=== PATIENT | male | born 1985 | race Caucasian/White ===

== ENCOUNTER 2021-04-29 16:39 | Emergency (ER) | payer OTHER, SELFPAY ==
[2021-04-29 16:47] VITALS: BP 139/83; PULSE 67; RESP 18; TEMP 36.3; O2SAT 99
--- NOTE | 2021-04-29 17:12 | ED.EAR ---
HPI - Ear Problem General Chief complaint: Ear Stated complaint: bilateral ear pain Time Seen by Provider: 04/29/21 16:56 Source: patient and RN notes reviewed Mode of arrival: ambulatory Limitations: no limitations History of Present Illness HPI Narrative: Patient presents today complaining of left ear pain x3 days. Reports the left ear has started to muffle. Denies drainage. Denies any additional symptoms to include cough, congestion, rhinorrhea, sore throat. Currently rates his pain 3/10 and took a dose of ibuprofen prior to arrival. Denies any additional interventions. MD Complaint: ear pain Related Data Home Medications Medication Instructions Recorded Confirmed citalopram 20 mg PO DAILY 04/29/21 04/29/21 Allergies Allergy/AdvReac Type Severity Reaction Status Date / Time Penicillins Allergy Unknown HIVES Verified 04/29/21 16:57 tetracycline Allergy Unknown HIVES Verified 04/29/21 16:57 Review of Systems Review of Systems: CONSTITUTIONAL: Denies body aches, fever, chills, or sweats. EYES: Denies visual changes, redness, or discharge. ENT: Denies rhinorrhea, congestion, sore throat. + Left ear pain and muffling CARDIOVASCULAR: Denies chest pain, palpitations, or edema. RESPIRATORY: Denies cough or dyspnea. GASTROINTESTINAL: Denies abdominal pain, nausea, vomiting, or diarrhea. GENITOURINARY: Denies dysuria or hematuria. SKIN: Denies rash, itching, or wounds. MUSCULOSKELETAL: Denies back pain, joint pain, or myalgia. NEUROLOGIC: Denies headache, numbness, tingling, or weakness. PSYCH: Denies depression or anxiety. PMFSH Comments At time of signature, I have reviewed and agree with nursing past medical, surgical, social and family history unless otherwise noted. Please see nursing chart for further information. There is no relevant family history pertinent to the presenting complaint Exam Narrative: GENERAL: Well-appearing, well-nourished, and in no acute distress. HEAD: Normocephalic, atraumatic. EYES: EOMI. No redness or drainage. Conjunctivae normal. ENT: Mucous membranes pink and moist. Nares clear. No rhinorrhea. Right TM normal. Mild left middle ear effusion without evidence of bacterial infection. Throat normal. Uvula midline. NECK: Normal AROM. Supple. No lymphadenopathy. CHEST: No respiratory distress. EXTREMITIES: Normal range of motion. No edema. SKIN: Warm, dry, no rash. Capillary refill normal. Normal skin turgor. NEURO: No focal deficits. Alert and oriented x3. Gait steady. PSYCH: Normal affect. No signs of depression or anxiety. Course Vital Signs Vital signs: Vital Signs Temperature 97.3 F L 04/29/21 16:47 Pulse Rate 67 04/29/21 16:47 Respiratory Rate 18 04/29/21 16:47 Blood Pressure 139/83 04/29/21 16:47 Pulse Oximetry 99 04/29/21 16:47 Temperature 97.3 F L 04/29/21 16:47 Pulse Rate 67 04/29/21 16:47 Respiratory Rate 18 04/29/21 16:47 Blood Pressure 139/83 04/29/21 16:47 Pulse Oximetry 99 04/29/21 16:47 Reviewed. Pt has been instructed to follow up with his PCP regarding his elevated blood pressure today. Medical Decision Making Differential Diagnosis Differential Diagnosis: Otitis media, otitis externa, ruptured TM, serous otitis, eustachian tube dysfunction Vital Signs Vital Signs: Vital Signs Temperature 97.3 F L 04/29/21 16:47 Pulse Rate 67 04/29/21 16:47 Respiratory Rate 18 04/29/21 16:47 Blood Pressure 139/83 04/29/21 16:47 Pulse Oximetry 99 04/29/21 16:47 Temperature 97.3 F L 04/29/21 16:47 Pulse Rate 67 04/29/21 16:47 Respiratory Rate 18 04/29/21 16:47 Blood Pressure 139/83 04/29/21 16:47 Pulse Oximetry 99 04/29/21 16:47 Critical Care Time Critical Care Time Critical Care Time: No Discharge Plan Discharge Clinical Impression: Acute middle ear effusion Qualifiers: Laterality: left Qualified Code(s): H65.192 - Other acute nonsuppurative otitis media, left ear Patient Dis
== END 2021-04-29 17:18 | disposition home or self-care (01) ==
PROVIDERS: Emergency Provider Nurse Practitioner; PCP Nurse Practitioner Family
DX: H65.192 Other acute nonsuppurative otitis media, left ear (principal); F41.9 Anxiety disorder, unspecified
CPT/HCPCS: 99211; G0463

== ENCOUNTER 2024-12-28 11:42 | Emergency (ER) | payer BC, SELFPAY ==
--- OUTSIDE RECORDS SUMMARY | 2024-12-28 11:44 | XMS_ITS | Encounter Summary ---
Author Organization [facility] Address [facility] [place] [address] Care Team Providers Care Marine Animal Trainer Name Role Phone Santino Nolen MD Unavailable [phone] Rachel Casanova NP Primary Care Provider Unav ailAstrid Phillips [facility] Primary Care Provider + Seda Geiger [facility] Primary Care Provider + Helen Pack MD Primary Care Provider [phone] Encounter Details Date Type Department Care Team (Late st Contact Info) Description 06/02/2020 [email or web address] Message Enc [facility] Medical Group Family & Internal Medicine [address] [address] Rachel Casanova, CLINICAL DATA ASSOCIATE RE: Question Social History Tobacco Use Types Packs/Day Years Used Date Smoking Tobacco: Never Smokeless Tobacco: Never Alcohol Use Standard Drinks/Week Comments Yes 0 (1 standard drink = 0.6 oz pur e alcohol) Drinks occasionally AUDIT-C Answer Date Recorded Q1: How often do you have a drink containing alc ohol? 2-4 times a month 03/11/2020 Q2: How many drinks containi ng alcohol do you have on a typical day when you are drinking? 1 or 2 03/11/2020 Q3: How often do you have si x or more drinks on one occasion? Never 03/11/2020 PHQ-2 Answer Date Recorded PHQ-2 Score 0 03/11/2020 Education Answer Date Recorded What is the highest level of school you have completed or the highest degree you have received? Master's degree (e.g., MA, MS, Darnell, MEd, INDUSTRIAL HIRE SALES ASSISTANT, YOUNG) 04/27/2019 Sex and Gender Information Value Date Recorded Sex Assigned at Male 04/27/2019 7:38 AM SAFETY ANALYST Legal Sex Male 12:08 PM CDT Gender Identity Male 04/27/2019 7:38 AM SAFETY ANALYST Sexual Orientation Straight 04/27/2019 7: 38 AM SAFETY ANALYST COVID-19 Exposure Response Date Recorded In the last month, have you been in contact with someone who was confirmed or suspected to have Coronavirus / COVID-19? No / Unsure 06/05/2020 10:58 AM SAFETY ANALYST documented as of this encounter Progress Notes * Kristyn Schmitt RN - 06/03/2020 8:22 AM CST Please advise. TY ANALYST documented in this encounter Plan of Treatment Not on file documented as of this encounter Visit Diagnoses Not on filedocumented in this encounter Care Teams Marine Animal Trainer Relationship Specialty Start Date End Date Rachel Casanova NP [address] [address] PCP - General NURSE PRACTITIONER 04/04/20 07/15/21 Astrid Stewart [facility] [address] [address] PCP - General Nurse Practitioner Family 08/29/21 02/21/23 Seda Geiger, [facility] [address] [place] [address] PCP - General Nurse Practitioner Family 02/22/23 12/04/24 [place] [address] [place] [address] PCP - General INTERNAL MEDICINE 12/05/24 Santino Nolen MD Three [facility]. [address] [address] [place] Network Technician CARDIOVASCULAR DISEASE 04/13/19 documented as of this encounter
--- OUTSIDE RECORDS SUMMARY | 2024-12-28 11:44 | XMS_ITS | Clinical Summary ---
Author Organization [facility] Address [address] [address] Care Team Providers Care Brim Edge Trimmer Name Role Phone Unavailable Primary Care Provider Unavailabl e Source Comments [facility],non-owned Affiliates and Associated Physician Practices is amultiple site organization consisting of ambulatory clinics and hospital sitesin [place], [place], [place]. This disclosure is being madepursuant to the Care Everywhere program and may not contain all information available regarding this patient. Last updated 18.[facility] [employer] Social History Tobacco Use Types Packs/Day Years Used Date Smoking Tobacco: Never Assessed Sex and Gender Information Value Date Recorded Sex Assigned at Not on file Legal Sex Male 3:40 PM PVC LOADER Gender Identity Not on file Sexual Orientation Not on file Plan of Treatment Health Maintenance Due Date Last Done Comments HIV SCREENING 09/03/2002 HEPATITIS C SCREENING 08/30/2005 DTAP/TDAP/TD VACCINES (1 - Tdap) 09/03/2006 HEPATITIS B VACCINE (1 of 3 - 19+ 3-dose series) 09/03/2006 HPV VACCINE (1 - 3-dose SCDM series) 09/03/2014 COVID-19 VACCINE (1 - 2023-2 5 season) 2024 DEPRESSION SCREENING 06/07/2024 INFLUENZA VACCINE (#1) 2025 ZOSTER VACCINE (1 of 2) 09/03/2037 HIB VACCINE Aged Out No longer eligi ble based on patient's age to complete this topic MENINGOCOCCAL (Group B) VACC INE SHARED DECISION-MAKING Aged Out No longer eligibl e based on patient's age to complete this topic MENINGOCOCCAL GROUPS A/C/Y/W VACCINE Aged Out No longer eligible b ased on patient's age to complete this topic PNEUMOCOCCAL VACCINE Aged Out No long er eligible based on patient's age to complete this topic [place] [address] [place] [address]
--- OUTSIDE RECORDS SUMMARY | 2024-12-28 11:44 | XMS_ITS | Clinical Summary ---
Author Organization [facility] [place] [address] Address [address] [place] [address] Care Team Providers Care Pottery Kiln Builder Name Role Phone Olga Rios ASSISTANT SCIENTIST Primary Care Provider + Allergies Active Allergy Reactions Criticality Noted Date Comments Penicillin G Other (See comments) Low 05/20/2018 Doesn't know reaction Social History Tobacco Use Types Packs/Day Years Used Date Smoking Tobacco: Never Assessed Personal Safety Answer Date Recorded Getting School Help Needed Not on file 08/19 Sex and Gender Information Value Date Recorded Sex Assigned at Not on file Legal Sex Male 7:30 AM WESTERN FELT HAT BLOCKER Gender Identity Not on file Sexual Orientation Not on file Last Filed Vital Signs Vital Sign Reading Time Taken Comments Blood Pressure - - Pulse - - Temperature - - Respiratory Rate - - Oxygen Saturation - - Inhaled Oxygen Concentration - - Weight 90.7 kg (200 lb) 05/20/2018 12:59 PM WESTERN FELT HAT BLOCKER Height 180.3 cm (5' 11) 05/20/2018 12:59 PM WESTERN FELT HAT BLOCKER Body Mass Index 27.89 05/20/2018 12:59 PM WESTERN FELT HAT BLOCKER Plan of Treatment Not on file Insurance [facility] CHOICE PLUS [facility] CHOICE PLUS [facility] ACCESS CHOICE Care Teams Pottery Kiln Builder Relationship Specialty Start Date End Date Olga iRos NP PCP - General Nurse Practitioner 05/02/18
--- OUTSIDE RECORDS SUMMARY | 2024-12-28 11:44 | XMS_ITS | Encounter Summary ---
Author Organization [facility] Address [address] [facility] [address] [place] [address] Care Team Providers Care Health Data Analyst Name Role Phone Unavailable Primary Care Provider Unavailabl e Encounter Details Date Type Department Care Team (Late st Contact Info) Description 05/21/2021 Lab Requisition [facility] DermPath Lab [address] [place] [id number] Satinder Villatoro MD [address] [place] [address] Social History Tobacco Use Types Packs/Day Years Used Date Smoking Tobacco: Never Assessed Sex and Gender Information Value Date Recorded Sex Assigned at Not on file Legal Sex Male 3:40 PM FOREST FIRE PREVENTION SPECIALIST Gender Identity Not on file Sexual Orientation Not on file documented as of this encounter Plan of Treatment Not on file documented as of this encounter Procedures Procedure Name Priority Date/Time Associated Diagnosis Comments DERMATOPATHOLOGY Routine 05/20/2021 12:0 0 AM FOREST FIRE PREVENTION SPECIALIST documented in this encounter Results * DERMATOPATHOLOGY (05/20/2021 12:00 AM FOREST FIRE PREVENTION SPECIALIST) Case Report Dermatopathology Report Case: [id number] Authorizing Provider: Satinder Villatoro MD Collected: 05/20/2021 12:00 AM Ordering Location: [facility] DermPath Lab Received: 05/21/2021 03:58 PM Pathologist: Lata Kate MD Specimens: A) - Skin, mid upper back B) - Skin, mid lower back 2:35 PM FOREST FIRE PREVENTION SPECIALIST DERMATOPATHOLOGY LABORATORY Final Diagnosis Specimen A. 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 SKIN, mid lower back: COMPOUND NEVUS WITH CONGENITAL FEATURES (D22.5) 12/20/202 1 2:35 PM [facility] DERMATOPATHOLOGY LABORATORY at [address] FOREST FIRE PREVENTION SPECIALIST Clinical History A: Nevus vs MM. Path # [id number]. B: Nevus vs MM. Path # [id number]. 1 2:35 PM [facility] DERMATOPATHOLOGY LABORATORY Gross Description Specimen A: Received is one formalin filled container labeled with the patient's name and designated mid upper back. The specimen consists of a shave biopsy measuring [id number]. Jar 0. Specimen B: Received is one formalin filled container labeled with the patient's name and designated mid lower back. The specimen consists of a shave biopsy measuring [id number]. Jar 0. 1 2:35 PM [facility] DERMATOPATHOLOGY LABORATORY Microscopic Description Specimen A. SKIN, mid upper back: This is a compound nevus. There is melanin pigment in the stratum corneum. There is architectural disorder characterized by a lentiginous proliferation of melanocytes between irregular nests of cells along the dermal-epidermal junction, highlighted by MART-1/Melan-A immunohistochemical staining. There is underlying fibroplasia of the papillary dermis. The intradermal component is bland appearance and matures with depth. Original and deeper sections were reviewed. (Compound Juan's Nevus or Compound Dysplastic Nevus) Specimen B. SKIN, mid lower back: There are nests of melanocytes at the dermal-epidermal junction and within the dermis. Some melanocytes are splayed between collagen bundles and are localized around adnexal structures. MART-1/Melan-A immunohistochemical stain highlights the melanocytes as above. 1 2:35 PM [facility] DERMATOPATHOLOGY LABORATORY Disclaimer An external and internal positive and negative controls are appropriate for the histochemical, immunohistochemical and immunofluorescence stain(s) in this case (if any), except where stated explicitly. The performance characteristics of the stain(s) cited in this report were developed and its performance characteristic determined by the Dermatopathology Laboratory at [facility], directed by Dr. Mikaela Feliz. These tests need not be, and therefore are not, approved by the [place] Food and Drug Administration. The tests are used for clinical purposes. Billing Codes Specimen Charges Stain Charges 76744 91946 1 1 [id number] 1 1 1 2:35 PM FOREST FIRE PREVENTION SPECIALIST DERMATOPATHOLOGY LABORATORY Embedded Images 2:35 PM FOREST FIRE PREVENTION SPECIALIST DERMATOPATHOLOGY LABORATORY Pathology/Cytology TISSUE SPECIMEN FROM SKIN / Unknown 05/20/2021 05/21/2021 3:58 PM FOREST FIRE PREVENTION SPECIALIST Miscellaneous samples (specimen) TISSUE SPECIMEN FROM SKIN / Unknown 05/20/2021 05/21/2021 3:58 PM FOREST FIRE PREVENTION SPECIALIST us Satinder Villatoro MD LAB - PATHOLOGY/CYTOLOGY ORDER ROSSY Final Result DERMATOPATHOLOGY LABORATORY [facility] - Department of Dermatology [facility] [address] [place] [address], [address] [phone] documented in this encounter Visit Diagnoses Not on filedocumented in this encounter
--- OUTSIDE RECORDS SUMMARY | 2024-12-28 11:44 | XMS_ITS | Encounter Summary ---
Author Organization [facility] Address [facility] [place] [address] Care Team Providers Care Land Conservation Specialist Name Role Phone Santino Nolen MD Unavailable [phone] Rachel Casanova NP Primary Care Provider Unav ailable Astrid Stewart [facility] Primary Care Provider + Seda Geiger [facility] Primary Care Provider + Helen Pack MD Primary Care Provider [phone] Encounter Details Date Type Department Care Team (Late st Contact Info) Description 06/06/2020 PageLevert Message Enc [facility] Medical Group Family & Internal Medicine [address] [address] Rachel Casanova, SUPPLY CONTROLLER RE: Medication Questions Social History Tobacco Use Types Packs/Day Years [...] Master's degree (e.g., MA, MS, Darnell, MEd, PROTECTIVE SIGNAL SUPERINTENDENT, YOUNG) 04/27/2019 Sex and Gender Information Value Date Recorded Sex Assigned at Male 04/27/2019 7:38 AM ELECTRIC WHEELCHAIR REPAIRER Legal Sex Male 12:08 PM CDT Gender Identity Male 04/27/2019 7:38 AM ELECTRIC WHEELCHAIR REPAIRER Sexual Orientation Straight 04/27/2019 7: 38 AM ELECTRIC WHEELCHAIR REPAIRER COVID-19 Exposure Response Date Recorded In the last month, have you been in contact with someone who was confirmed or suspected to have Coronavirus / COVID-19? No / Unsure 06/05/2020 10:58 AM ELECTRIC WHEELCHAIR REPAIRER documented as of this encounter Plan of Treatment Not on file documented as of this encounter Visit Diagnoses Not on filedocumented in this encounter Care Teams Land Conservation Specialist Relationship Specialty Start Date End Date Rachel Casanova NP [address] [address] PCP - General NURSE PRACTITIONER 04/04/20 07/15/21 Astrid Stewart, [facility] [address] [address] PCP - General Nurse Practitioner Family 08/29/21 02/21/23 Seda Geiger, [facility] [address] [place] [address] PCP - General Nurse Practitioner Family 02/22/23 12/04/24 [place] [address] [place] [address] PCP - General INTERNAL MEDICINE 12/05/24 Santino Nolen MD [address] [address] [place] Personal Financial Counselor CARDIOVASCULAR DISEASE 04/13/19 documented as of this encounter
--- OUTSIDE RECORDS SUMMARY | 2024-12-28 11:44 | XMS_ITS | Referral Summary ---
Author Organization [facility] [place] [address] Address [address] [place] [address] Care Team Providers Care Broomcorn Seeder Name Role Phone Olga Rios SKOOG MACHINE OPERATOR Primary Care Provider + Allergies Active Allergy [...] on file Legal Sex Male 7:30 AM CHARGE ACCOUNT AUTHORIZER Gender Identity Not on file Sexual Orientation Not on file Last Filed Vital Signs Vital Sign Reading Time Taken Comments Blood Pressure - - Pulse - - Temperature - - Respiratory Rate - - Oxygen Saturation - - Inhaled Oxygen Concentration - - Weight 90.7 kg (200 lb) 05/20/2018 12:59 PM CHARGE ACCOUNT AUTHORIZER Height 180.3 cm (5' 11) 05/20/2018 12:59 PM CHARGE ACCOUNT AUTHORIZER Body Mass Index 27.89 05/20/2018 12:59 PM CHARGE ACCOUNT AUTHORIZER Plan of Treatment Not on file Insurance [facility] CHOICE PLUS [facility] H[facility]/PPO Address: [address] [address] [place] [address] [facility] CHOICE PLUS [facility] HMO/PPO Address: [address] [address] [place] [address] [facility] ACCESS CHOICE Care Teams Broomcorn Seeder Relationship Specialty Start Date End Date Olga Rios NP PCP - General Nurse Practitioner 05/02/18
--- OUTSIDE RECORDS SUMMARY | 2024-12-28 11:44 | XMS_ITS | Encounter Summary ---
Author Organization [facility] Address [facility] [place] [address] Care Team Providers Care Kettle Tender Name Role Phone Santino Nolen MD Unavailable [phone] Rachel Casanova NP Primary Care Provider Unav ailable Astrid Stewart [facility] Primary Care Provider + Seda Geiger [facility] Primary Care Provider + Helen Pack MD Primary Care Provider [phone] Encounter Details Date Type Department Care Team (Late st Contact Info) Description 09/07/2020 MyChart Message Enc [facility] Medical Group Family & Internal Medicine [address] [address] Rachel Casanova, IT PROGRAMMER RE: Medication Questions Social History Tobacco Use [...] Master's degree (e.g., MA, MS, Darnell, MEd, ADVERTISING ASSISTANT, YOUNG) 04/27/2019 Sex and Gender Information Value Date Recorded Sex Assigned at Male 04/27/2019 7:38 AM PALM GATHERER Legal Sex Male 12:08 PM CDT Gender Identity Male 04/27/2019 7:38 AM PALM GATHERER Sexual Orientation Straight 04/27/2019 7: 38 AM PALM GATHERER COVID-19 Exposure Response Date Recorded In the last month, have you been in contact with someone who was confirmed or suspected to have Coronavirus / COVID-19? No / Unsure 09/10/2020 3:01 PM CDT documented as of this encounter Progress Notes * Kristyn Schmitt RN - 09/09/2020 8:45 AM CDT Please advise. documented in this encounter Plan of Treatment Not on file documented as of this encounter Visit Diagnoses Not on filedocumented in this encounter Care Teams Kettle Tender Relationship Specialty Start Date End Date Rachel Casanova NP [address] [address] PCP - General NURSE PRACTITIONER 04/04/20 07/15/21 Astrid Stewart [facility] [address] [address] PCP - General Nurse Practitioner Family 08/29/21 02/21/23 Seda Geiger, [facility] [address] [place], [place] [id number] PCP - General Nurse Practitioner Family 02/22/23 12/04/24 [place] [address] [place] [address] PCP - General INTERNAL MEDICINE 12/05/24 Santino Nolen MD Three [facility]. [address] [address] [place] Cat Wagon Operator CARDIOVASCULAR DISEASE 04/13/19 documented as of this encounter
--- OUTSIDE RECORDS SUMMARY | 2024-12-28 11:44 | XMS_ITS | Clinical Summary ---
Author Organization [facility] Address [facility] [place] [address] Care Team Providers Care Test Desk Supervisor Name Role Phone Santino Nolen MD Unavailable [phone] Helen Pack MD Primary Care Provider Allergies Active Allergy Reactions Criticality Noted Date Comments Penicillins Unknown Low 02/15/2019 Childhood allergy Medications Multiple Vitamins-Minera ls (MULTIVITAMIN ADULT OR) Take 1 tablet by mouth daily. Active ALPRAZolam (XANAX) 1 MG tabletIndicatio ns:Anxiety with flying Take 1 -2 tablets as needed for flying 90 tablet 12/25/2021 Active omeprazole EC 20 MG Tab EC tablet 09/05/2022 Active citalopram (CELEXA) 20 MG tabletIndicatio ns:Generalized anxiety disorder Take 1.5 tablets (30 mg total) by mouth daily. 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 BMI 28.0-28.9,adult 10/06/2018 Resolved Problems Problem Noted Date Diagnosed Date Resolved Date Anxiety 04/04/2019 09/06/2021 Chest pain 09/06/2021 Immunizations Immunization Administration Dates Next Due Flucelvax 6 Months+ (Prefilled Syringe) 03/07/20 20 Fluzone 6 Months+ Quad (0.5 mL Prefilled Syringe ) 06/03/2023,04/04/2019 Influenza Adult (Generic) 03/07/2020,03/28/2015 tsumobi (ABEBE & ABEBE) COVID-19 AD26 VACCINE 0.5 ML IM SUSP 2020 Tdap (Generic) 11/06/2022,06/07/2016 Family History Medical History Relation Comments None Brother 1 None Brother 2 Diabetes Father type 2 No Known Problems Maternal Grandfather No Known Problems Maternal Grandmother Hearing loss Mother Cancer Paternal Grandfather pancreatic cancer Dementia Paternal Grandfather Heart Disease Paternal Grandfather great grand father Alzheimer's disease Paternal Grandmother Anxiety Paternal Grandmother Heart Disease Paternal great-grandfather Relation Status Comments Brother 1 Alive Brother 2 Alive Father Alive Maternal Grandfather Maternal Grandmother Mother Alive Paternal Grandfather Paternal Grandmother Alive Paternal great-grandfather Social History Tobacco Use Types Packs/Day Years Used Date Smoking Tobacco: Never Smokeless Tobacco: Never Tobacco Cessation:Counseling Given: No Alcohol Use Standard Drinks/Week Comments Yes 1.7 (1 standard drink = 0.6 oz p ure alcohol) Drinks occasionally AUDIT-C Answer Date Recorded [...] occasion? Never 03/11/2020 PHQ-2 Answer Date Recorded Patient Health Questionnaire-2 Score 0 09/08/2022 Education Answer Date Recorded What is the highest level of school you have completed or the highest degree you have received? Master's degree (e.g., MA, MS, Darnell, MEd, CORE SUCKER, YOUNG) 04/27/2019 Sex and Gender Information Value Date Recorded Sex Assigned at Male 04/27/2019 7:38 AM CIVIL DESIGNER Legal Sex Male 12:08 PM CDT Gender Identity Male 04/27/2019 7:38 AM CIVIL DESIGNER Sexual Orientation Straight 04/27/2019 7: 38 AM CIVIL DESIGNER Last Filed Vital Signs Vital Sign Reading Time Taken Comments Blood Pressure 132/89 06/03/2023 10:51 AM CIVIL DESIGNER Pulse 65 06/03/2023 10:51 AM CIVIL DESIGNER Temperature 36.6 C (97.9 F) 06/03/2023 10:51 AM CIVIL DESIGNER Respiratory Rate 16 06/03/2023 10:5 1 AM CIVIL DESIGNER Oxygen Saturation 98% 06/03/2023 10: 51 AM CIVIL DESIGNER Inhaled Oxygen Concentration - - Weight 103.2 kg (227 lb 9.6 oz) 023 10:51 AM CIVIL DESIGNER Height 180.3 cm (5' 11) 06/03/2023 10: 51 AM CIVIL DESIGNER Body Mass Index 31.74 06/03/2023 10:51 AM CIVIL DESIGNER Plan of Treatment Health Maintenance Due Date Last Done Comments Hepatitis C 09/03/2005 Hepatitis B Vaccines (1 of 3 - 19+ 3-dose series) 09/03/2006 HPV Vaccines (1 - 3-dose SCD M series) 09/03/2014 COVID-19 Vaccine (2 - 2023-2 5 season) 2024 2020 Annual Physical 06/03/2024 06/03/2023, 12/25/2021 PHQ-2 (Physician [place]) 06/07/2024 DTaP, Tdap and Td Vaccines ( 3 - Td or Tdap) 11/06/2032 11/06/2022, 06/07/2016 Meningococcal B Vaccine Aged Out No l onger eligible based on patient's age to complete this topic Meningococcal Vaccine Aged Out No farn yonas eligible based on patient's age to complete this topic Pneumococcal Vaccine: Pediatrics (0 to 5 Years) and At-Risk Patients (6 to 49 Years) Aged Out No longer eligible b ased on patient's age to complete this topic RSV Immunizations Under 20 Months Aged Out No longer eligible b ased on patient's age to complete this topic Medical Devices Implanted Type Area Family Preservation Officer Device Identifier Shelf Expiration Date Model / Serial / Lot Clip Clip Implant Abdomen Insurance [facility] Care Teams Test Desk Supervisor Relationship Specialty [place] [address] [address] PCP - General INTERNAL MEDICINE 12/05/24 Santino Nolen MD Three [facility]. [address] [address] Sun Dealer Development Manager CARDIOVASCULAR DISEASE 04/13/19
--- OUTSIDE RECORDS SUMMARY | 2024-12-28 11:44 | XMS_ITS | Encounter Summary ---
Author Organization [facility] Address [facility] [place] [address] Care Team Providers Care Grief Counsellor Name Role Phone Santino Nolen MD Unavailable [phone] Rachel Casanova NP Primary Care Provider Unav ailAstrid Phillips [facility] Primary Care Provider + Seda Geiger [facility] Primary Care Provider + Helen Pack MD Primary Care Provider [phone] Encounter Details Date Type Department Care Team (Late st Contact Info) Description 05/23/2020 Navis Holdingst Message Enc [facility] Medical Group Family & Internal Medicine [address] [address] Rachel Casanova, DIETARY TECH RE: Follow Up/Update Social History Tobacco Use Types Packs/Day Years [...] Master's degree (e.g., MA, MS, Darnell, MEd, GROUP MARKETING VP, YOUNG) 04/27/2019 Sex and Gender Information Value Date Recorded Sex Assigned at Male 04/27/2019 7:38 AM ROOMING HOUSE OPERATOR Legal Sex Male 12:08 PM CDT Gender Identity Male 04/27/2019 7:38 AM ROOMING HOUSE OPERATOR Sexual Orientation Straight 04/27/2019 7: 38 AM ROOMING HOUSE OPERATOR COVID-19 Exposure Response Date Recorded In the last month, have you been in contact with someone who was confirmed or suspected to have Coronavirus / COVID-19? No / Unsure 05/13/2020 8:58 AM ROOMING HOUSE OPERATOR documented as of this encounter Progress Notes * Kristyn Schmitt RN - 05/23/2020 8:47 AM CST Please advise. ING HOUSE OPERATOR documented in this encounter Plan of Treatment Not on file documented as of this encounter Visit Diagnoses Not on filedocumented in this encounter Care Teams Grief Counsellor Relationship Specialty Start Date End Date Rachel Casanova NP [address] [address] PCP - General NURSE PRACTITIONER 04/04/20 07/15/21 Astrid Stewart, [facility] [address] [address] PCP - General Nurse Practitioner Family 08/29/21 02/21/23 Seda Geiger, [facility] [address], [address] [place] [address] PCP - General Nurse Practitioner Family 02/22/23 12/04/24 [place] [address] [place] [address] PCP - General INTERNAL MEDICINE 12/05/24 Santino Nolen MD Three [facility]. [address] [address] Sun Supervisor Grinding CARDIOVASCULAR DISEASE 04/13/19 documented as of this encounter
--- OUTSIDE RECORDS SUMMARY | 2024-12-28 11:44 | XMS_ITS | Encounter Summary ---
Author Organization [facility] Address [facility] [place] [address] Care Team Providers Care Organic Chemistry Teacher Name Role Phone Santino Nolen MD Unavailable [phone] Rachel Casanova NP Primary Care Provider Unav ailAstrid Phillips [facility] Primary Care Provider + Seda Geiger [facility] Primary Care Provider + Helen Pack MD Primary Care Provider [phone] Encounter Details Date Type Department Care Team (Late st Contact Info) Description 05/23/2020 Afraxist Message Enc [facility] Medical Group Family & Internal Medicine [address] [address] Rachel Casanova, DIRECTOR OF STRATEGIC PARTNERSHIPS RE: Follow Up/Update Social History Tobacco Use [...] Master's degree (e.g., MA, MS, Darnell, MEd, SUPERVISOR COIN MACHINE, YOUNG) 04/27/2019 Sex and Gender Information Value Date Recorded Sex Assigned at Male 04/27/2019 7:38 AM CREDIT AND COLLECTION MANAGER Legal Sex Male 12:08 PM CDT Gender Identity Male 04/27/2019 7:38 AM CREDIT AND COLLECTION MANAGER Sexual Orientation Straight 04/27/2019 7: 38 AM CREDIT AND COLLECTION MANAGER COVID-19 Exposure Response Date Recorded In the last month, have you been in contact with someone who was confirmed or suspected to have Coronavirus / COVID-19? No / Unsure 05/13/2020 8:58 AM CREDIT AND COLLECTION MANAGER documented as of this encounter Progress Notes * Kristyn Schmitt RN - 05/23/2020 9:32 AM CST See images below. IT AND COLLECTION MANAGER documented in this encounter Plan of Treatment Not on file documented as of this encounter Visit Diagnoses Not on filedocumented in this encounter Care Teams Organic Chemistry Teacher Relationship Specialty Start Date End Date Rachel Casanova NP [address] [address] PCP - General NURSE PRACTITIONER 04/04/20 07/15/21 Astrid Stewart, [facility] [address] [address] PCP - General Nurse Practitioner Family 08/29/21 02/21/23 Seda Geiger, [facility] [address], [address] [place] [address] PCP - General Nurse Practitioner Family 02/22/23 12/04/24 [place] [address] [place] [address] PCP - General INTERNAL MEDICINE 12/05/24 Santino Nolen MD Three [facility]. [address] [address] Sun Union Representative CARDIOVASCULAR DISEASE 04/13/19 documented as of this encounter
--- OUTSIDE RECORDS SUMMARY | 2024-12-28 11:45 | XMS_ITS | Encounter Summary ---
Author Organization [facility] Address [facility] [place] [address] Care Team Providers Care Lime Boiler Name Role Phone Santino Nolen MD Unavailable [phone] Rachel Casanova NP Primary Care Provider Unav ailAstrid Phillips [facility] Primary Care Provider + Seda Geiger [facility] Primary Care Provider + Helen Pack MD Primary Care Provider [phone] Encounter Details Date Type Department Care Team (Late st Contact Info) Description 04/28/2020 mobifriendst Message Enc [facility] Medical Group Family & Internal Medicine [address] [address] Rachel Casanova, INNER DIAMETER GRINDER TOOL RE: Follow Up/Update Social History Tobacco Use [...] Master's degree (e.g., MA, MS, Darnell, MEd, CERTIFICATION OFFICER, YOUNG) 04/27/2019 Sex and Gender Information Value Date Recorded Sex Assigned at Male 04/27/2019 7:38 AM COMPUTER BOOKKEEPER Legal Sex Male 12:08 PM CDT Gender Identity Male 04/27/2019 7:38 AM COMPUTER BOOKKEEPER Sexual Orientation Straight 04/27/2019 7: 38 AM COMPUTER BOOKKEEPER COVID-19 Exposure Response Date Recorded In the last month, have you been in contact with someone who was confirmed or suspected to have Coronavirus / COVID-19? No / Unsure 04/04/2020 7:15 AM CDT documented as of this encounter Progress Notes * Corrie Ivy RN - 04/30/2020 8:35 AM CST Will need to submit a PA UTER BOOKKEEPER * Gayla Jason RN - 04/29/2020 10:16 AM CST FYI. UTER BOOKKEEPER documented in this encounter Plan of Treatment Not on file documented as of this encounter Visit Diagnoses Not on filedocumented in this encounter Care Teams Lime Boiler Relationship Specialty Start Date End Date Rachel Casanova NP [address] [address] PCP - General NURSE PRACTITIONER 04/04/20 07/15/21 Astrid Stewart, [facility] [address] [place] [address] PCP - General Nurse Practitioner Family 08/29/21 02/21/23 Seda Geiger, [facility]- [address], [address] [place] [address] PCP - General Nurse Practitioner Family 02/22/23 12/04/24 [place] [address] [place] [address] PCP - General INTERNAL MEDICINE 12/05/24 Santino Nolen MD Three [facility]. [address] [address] [place] In File Operator CARDIOVASCULAR DISEASE 04/13/19 documented as of this encounter
--- OUTSIDE RECORDS SUMMARY | 2024-12-28 11:45 | XMS_ITS | Encounter Summary ---
Author Organization [facility] Address [facility] [place] [address] Care Team Providers Care Pipe Machine Operator Name Role Phone Santino Nolen MD Unavailable [phone] Rachel Casanova BOTTLER Primary Care Provider Unav ailable Astrid Stewart [facility] Primary Care Provider + Seda Geiger [facility] Primary Care Provider + Helen Pack MD Primary Care Provider [phone] Encounter Details Date Type Department Care Team (Late st Contact Info) Description 09/16/2020 MyNextRun Message [facility] [address] [place] [address] [place] [address] [place] [address] RE: Medication Questions Social History Tobacco Use [...] Master's degree (e.g., MA, MS, Darnell, MEd, MILITARY LAWYER, YOUNG) 04/27/2019 Sex and Gender Information Value Date Recorded Sex Assigned at Male 04/27/2019 7:38 AM PIANO MOVER Legal Sex Male 12:08 PM CDT Gender Identity Male 04/27/2019 7:38 AM PIANO MOVER Sexual Orientation Straight 04/27/2019 7: 38 AM PIANO MOVER COVID-19 Exposure Response Date Recorded In the last month, have you been in contact with someone who was confirmed or suspected to have Coronavirus / COVID-19? No / Unsure 09/10/2020 3:01 PM CDT documented as of this encounter Plan of Treatment Not on file documented as of this encounter Visit Diagnoses Not on filedocumented in this encounter Care Teams Pipe Machine Operator Relationship Specialty Start Date End Date Rachel Casanova NP [address] [address] PCP - General NURSE PRACTITIONER 04/04/20 07/15/21 Astrid Stewart [facility] [address] [address] PCP - General Nurse Practitioner Family 08/29/21 02/21/23 Seda Geiger, [facility] [address], [address] [place] [address] PCP - General Nurse Practitioner Family 02/22/23 12/04/24 [place] [address] [address] [place] [address] PCP - General INTERNAL MEDICINE 12/05/24 Santino Nolen MD [address] [place] [address] Sun Retirement Specialist CARDIOVASCULAR DISEASE 04/13/19 documented as of this encounter
--- OUTSIDE RECORDS SUMMARY | 2024-12-28 11:45 | XMS_ITS | Encounter Summary ---
Author Organization [facility] Address [facility] [place] [address] Care Team Providers Care Rehabilitation Attendant Name Role Phone Santino Nolen MD Unavailable [phone] Rachel Casanova NP Primary Care Provider Unav ailAstrid Phillips [facility] Primary Care Provider + Seda Geiger [facility] Primary Care Provider + Helen Pack MD Primary Care Provider [phone] Encounter Details Date Type Department Care Team (Late st Contact Info) Description 04/12/2020 SonicLivingt Message Enc [facility] Medical Group Family & Internal Medicine [address] [address] Rachel Casanova, SPRAY DRIER RE: Follow Up/Update Social History Tobacco Use [...] Master's degree (e.g., MA, MS, Darnell, MEd, AUDITOR MEDICAL CLAIMS, YOUNG) 04/27/2019 Sex and Gender Information Value Date Recorded Sex Assigned at Male 04/27/2019 7:38 AM AREA SECRETARY Legal Sex Male 12:08 PM CDT Gender Identity Male 04/27/2019 7:38 AM AREA SECRETARY Sexual Orientation Straight 04/27/2019 7: 38 AM AREA SECRETARY COVID-19 Exposure Response Date Recorded In the last month, have you been in contact with someone who was confirmed or suspected to have Coronavirus / COVID-19? No / Unsure 04/04/2020 7:15 AM CDT documented as of this encounter Plan of Treatment Not on file documented as of this encounter Visit Diagnoses Not on filedocumented in this encounter Care Teams Rehabilitation Attendant Relationship Specialty Start Date End Date Rachel Casanova NP [address] [address] PCP - General NURSE PRACTITIONER 04/04/20 07/15/21 Astrid Stewart, [facility] [address] [address] PCP - General Nurse Practitioner Family 08/29/21 02/21/23 Sead Geiger, [facility] [address], [address] [place] [address] PCP - General Nurse Practitioner Family 02/22/23 12/04/24 [place] [address] [address] [place] [address] PCP - General INTERNAL MEDICINE 12/05/24 Santino Nolen MD [address] [address] [place] Yarn Comber CARDIOVASCULAR DISEASE 04/13/19 documented as of this encounter
--- OUTSIDE RECORDS SUMMARY | 2024-12-28 11:45 | XMS_ITS | Encounter Summary ---
Author Organization [facility] Address Count includes the [facility] [place] [address] Care Team Providers Care Fermenter Champagne Name Role Phone Santion Nolen MD Unavailable [phone] Rachel Casanova CAFETERIA CLERK Primary Care Provider Unav ailable Astrid Stewart [facility] Primary Care Provider + Seda Geiger [facility] Primary Care Provider + Helen Pack MD Primary Care Provider [phone] Encounter Details Date Type Department Care Team (Late st Contact Info) Description 10/12/2020 MyCLoad DynamiXt Message Enc [facility] Medical Group Family & Internal Medicine [address] [address] Astrid Stewart [facility] [address] [place] [address] RE: Follow Up/Update Social History Tobacco Use [...] 03/11/2020 PHQ-2 Answer Date Recorded PHQ-2 Score - If the patient scores above 3, please move on to questions 3-9 0 10/10/2020 Education Answer Date Recorded What is the highest level of school you have completed or the highest degree you have received? Master's degree (e.g., MA, MS, Darnell, MEd, SUPERVISOR VARNISH, YOUNG) 04/27/2019 Sex and Gender Information Value Date Recorded Sex Assigned at Male 04/27/2019 7:38 AM RN ORTHOPAEDIC Legal Sex Male 12:08 PM CDT Gender Identity Male 04/27/2019 7:38 AM RN ORTHOPAEDIC Sexual Orientation Straight 04/27/2019 7: 38 AM RN ORTHOPAEDIC COVID-19 Exposure Response Date Recorded In the last month, have you been in contact with someone who was confirmed or suspected to have Coronavirus / COVID-19? No / Unsure 10/10/2020 4:14 PM CDT documented as of this encounter Plan of Treatment Not on file documented as of this encounter Visit Diagnoses Not on filedocumented in this encounter Care Teams Fermenter Champagne Relationship Specialty Start Date End Date Rachel Casanova NP [address] [address] PCP - General NURSE PRACTITIONER 04/04/20 07/15/21 Astrid Stewart [facility] [address] [address] PCP - General Nurse Practitioner Family 08/29/21 02/21/23 Seda Geiger, [facility] [address], [address] [place] [address] PCP - General Nurse Practitioner Family 02/22/23 12/04/24 [place] [address] [address] [place] [address] PCP - General INTERNAL MEDICINE 12/05/24 Santino Nolen MD Three [facility]. [address] [address] Sun Hot Tamale Man CARDIOVASCULAR DISEASE 04/13/19 documented as of this encounter
--- OUTSIDE RECORDS SUMMARY | 2024-12-28 11:45 | XMS_ITS | Encounter Summary ---
Author Organization [facility] Address [facility] [place] [address] Care Team Providers Care Linen Tech Name Role Phone Santino Nolen MD Unavailable [phone] Negar Story Primary Care Provider [phone] Rachel Casanova NP Primary Care Provider Unav ailable Astrid Stewart [facility] Primary Care Provider + Seda Geiger [facility] Primary Care Provider + Helen Pack MD Primary Care Provider [phone] Encounter Details Date Type Department Care Team (Late st Contact Info) Description 03/31/2020 MyChart Message Enc [facility] Medical Group Family & Internal Medicine [address] [address] Rachel Casanova NP Follow Up/Update Social History Tobacco Use Types [...] Master's degree (e.g., MA, MS, Darnell, MEd, SCIENTIFIC PUBLICATIONS EDITOR, YOUNG) 04/27/2019 Sex and Gender Information Value Date Recorded Sex Assigned at Male 04/27/2019 7:38 AM SPECIAL EDUCATION PROFESSIONAL Legal Sex Male 12:08 PM CDT Gender Identity Male 04/27/2019 7:38 AM SPECIAL EDUCATION PROFESSIONAL Sexual Orientation Straight 04/27/2019 7: 38 AM SPECIAL EDUCATION PROFESSIONAL COVID-19 Exposure Response Date Recorded In the last month, have you been in contact with someone who was confirmed or suspected to have Coronavirus / COVID-19? No / Unsure 03/11/2020 1:41 PM CDT documented as of this encounter Plan of Treatment Not on file documented as of this encounter Visit Diagnoses Not on filedocumented in this encounter Care Teams Linen Tech Relationship Specialty Start Date End Date Negar Story APNP [id number] [address] PCP - General Nurse Practitioner Family 04/27/19 04/03/20 [place] [address] [address] PCP - General NURSE PRACTITIONER 04/04/20 07/15/21 Astrid Stewart [facility] [address] [address] PCP - General Nurse Practitioner Family 08/29/21 02/21/23 Seda Geiger, [facility] [address] [facility], [address] [address] PCP - General Nurse Practitioner Family 02/22/23 12/04/24 [place] [address] [facility] [address] [place] [address] PCP - General INTERNAL MEDICINE 12/05/24 Santino Nolen MD Three [facility]. [address] [address] [place] Fruit Harvester Machine Operator CARDIOVASCULAR DISEASE 04/13/19 documented as of this encounter
--- OUTSIDE RECORDS SUMMARY | 2024-12-28 11:45 | XMS_ITS | Encounter Summary ---
Author Organization [facility] Address [facility] [place] [address] Care Team Providers Care Student Services Dean Name Role Phone Santino Nolen MD Unavailable [phone] Astrid Stewart [facility] Primary Care Provider + Seda Geiger [facility] Primary Care Provider + Helen aPck MD Primary Care Provider [phone] Encounter Details Date Type Department Care Team (Late st Contact Info) Description 08/16/2021 MyCMomoxt Message Enc [facility] Medical Group Family & Internal Medicine [address] [address] [address]id Stewart [address] [address] Flight Medicine Social History Tobacco Use Types Packs/Day Years [...] Master's degree (e.g., MA, MS, Darnell, MEd, COATER SLATE, YOUNG) 04/27/2019 Sex and Gender Information Value Date Recorded Sex Assigned at Male 04/27/2019 7:38 AM WELDING MACHINE OPERATOR ARC Legal Sex Male 12:08 PM CDT Gender Identity Male 04/27/2019 7:38 AM WELDING MACHINE OPERATOR ARC Sexual Orientation Straight 04/27/2019 7: 38 AM WELDING MACHINE OPERATOR ARC documented as of this encounter Plan of Treatment Not on file documented as of this encounter Visit Diagnoses Not on filedocumented in this encounter Care Teams Student Services Dean Relationship Specialty Start Date End Date Astrid Stewart, [facility] [address] [place] [address] PCP - General Nurse Practitioner Family 08/29/21 02/21/23 Seda Geiger, [facility] [address], [address] [place] [address] PCP - General Nurse Practitioner Family 02/22/23 12/04/24 [place] [address] [address] [place] [address] PCP - General INTERNAL MEDICINE 12/05/24 Santino Nolen MD [facility]. [place] [address] [place], [place] [address] Sun Automatic Presser CARDIOVASCULAR DISEASE 04/13/19 documented as of this encounter
--- OUTSIDE RECORDS SUMMARY | 2024-12-28 11:45 | XMS_ITS | Encounter Summary ---
Author Organization [facility] Address [facility] [place] [address] Care Team Providers Care Certified Optician Name Role Phone Santino Nolen MD Unavailable [phone] Negar Story APNP Primary Care Provider [phone] Rachel Casanova [employer] [facility] Primary Care Provider Unav ailable Astrid Stewart [facility] Primary Care Provider + Seda Geiger [facility] Primary Care Provider + Helen Pack MD Primary Care Provider [phone] Encounter Details Date Type Department Care Team (Late st Contact Info) Description 12/20/2019 Prep for Procedure [facility] [place] [place], [place] [id number] Joel Case MD 3 [facility] [address] [address] [place] [id number] Social History Tobacco Use Types Packs/Day Years Used Date Smoking Tobacco: Never Smokeless Tobacco: Never Alcohol Use Standard Drinks/Week Comments Yes 0 (1 standard drink = 0.6 oz pur e alcohol) Drinks occasionally AUDIT-C Answer Date Recorded Frequency of Alcohol Consumption Never 10/04/2018 Average Number of Drinks Not on file 019 Frequency of Binge Drinking Not on file 09/07 Education Answer Date Recorded What is the highest level of school you have completed or the highest degree you have received? 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 No / Unsure 12/21/2019 10:46 AM CDT documented as of this encounter Plan of Treatment Not on file documented as of this encounter Results * RESPIRATORY PCR PANEL 2 ([facility] PATIENTS ONLY) (12/20/2019 9:00 AM CDT) ADENOVIRUS PCR (RESP) NOT DETECTED NOT DETECTED 12/20/2019 1:18 PM CDT [facility] CORONAVIRUS 229E PCR (RESP) NOT DETECTED NOT DETECTED 12/20/2019 1:18 PM CDT [facility] CORONAVIRUS HKU1 PCR (RESP) NOT DETECTED NOT DETECTED 12/20/2019 1:18 PM CDT [facility] CORONAVIRUS NL63 PCR (RESP) NOT DETECTED NOT DETECTED 12/20/2019 1:18 PM CDT [facility] CORONAVIRUS OC43 PCR (RESP) NOT DETECTED NOT DETECTED 12/20/2019 1:18 PM CDT [facility] METAPNEUMOVIRUS PCR (RESP) NOT DETECTED NOT DETECTED 12/20/2019 1:18 PM CDT [facility] RHINOVIRUS/ENTEROV IRUS PCR (RESP) NOT DETECTED NOT DETECTED 12/20/2019 1:18 PM CDT [facility] INFLUENZA A PCR (RESP) NOT DETECTED NOT DETECTED 12/20/2019 1:18 PM CDT [facility] INFLUENZA B PCR (RESP) NOT DETECTED NOT DETECTED 12/20/2019 1:18 PM CDT [facility] PARAINFLUENZA 1 PCR (RESP) NOT DETECTED NOT DETECTED 12/20/2019 1:18 PM CDT [facility] PARAINFLUENZA 2 PCR (RESP) NOT DETECTED NOT DETECTED 12/20/2019 1:18 PM CDT [facility] PARAINFLUENZA 3 PCR (RESP) NOT DETECTED NOT DETECTED 12/20/2019 1:18 PM CDT [facility] PARAINFLUENZA 4 PCR (RESP) NOT DETECTED NOT DETECTED 12/20/2019 1:18 PM CDT [facility] RSV PCR (RESP) NOT DETECTED NOT DETECTED 12/20/2019 1:18 PM CDT [facility] B PARAPERTUSIS PCR (RESP) NOT DETECTED NOT DETECTED 12/20/2019 1:18 PM CDT [facility] BORDETELLA PERTUSSIS PCR (RESP) NOT DETECTED NOT DETECTED 12/20/2019 1:18 PM CDT [facility] CHLAMYDOPHILA PNEUMONIAE PCR (RESP) NOT DETECTED NOT DETECTED 12/20/2019 1:18 PM CDT [facility] MYCOPLASMA PNEUMONIAE PCR (RESP) NOT DETECTED NOT DETECTED 12/20/2019 1:18 PM CDT [facility] CORONAVIRUS SARS COV 2 PCR (RESP) NOT DETECTED NOT DETECTED 12/20/2019 1:18 PM CDT [facility] Comment: THE SARS-CoV-2 TEST HAS BEEN AUTHORIZED BY THE FDA UNDER AN EUA FOR USE BY AUTHORIZED LABORATORIES. NASOPHARYNGEAL STRUCTURE / Unknown 12/20/2019 9:00 AM CDT Joel Case MD MICROBIOLOGY - GENERAL ORDERABLE S Final Result [facility] [address] [place] [address], [place] [phone] documented in this encounter Visit Diagnoses Diagnosis AP (abdominal pain)- Primary Abdominal pain, unspecified site Constipation Unspecified constipation documented in this encounter Additional Health Concerns Infection Onset Date Last Indicated Resolved Time COVID-19 Rule Out 12/20/2019 12/20/2019 12/20/2019 1:18 PM CDT documented as of this encounter Care Teams Certified Optician Relationship Specialty Start Date End Date Negar Story APNP [id number] [id number] PCP - General Nurse Practitioner Family 04/27/19 04/03/20 [place] [address] [address] PCP - General NURSE PRACTITIONER 04/04/20 07/15/21 Astrid Stewart [facility] [address] [address] PCP - General Nurse Practitioner Family 08/29/21 02/21/23 Seda Geiger, [facility] [address] [place] [address] PCP - General Nurse Practitioner Family 02/22/23 12/04/24 [place] [address] [address] PCP - General INTERNAL MEDICINE 12/05/24 Santino Nolen MD [address] [address] [employer] Engineering Technician CARDIOVASCULAR DISEASE 04/13/19 documented as of this encounter
--- OUTSIDE RECORDS SUMMARY | 2024-12-28 11:45 | XMS_ITS | Encounter Summary ---
Author Organization [facility] Address [facility] [place] [address] Care Team Providers Care Workers' Compensation Claims Examiner Name Role Phone Santino Nolen MD Unavailable [phone] Seda Geiger [facility] Primary Care Provider + Helen Pack MD Primary Care Provider [phone] Encounter Details Date Type Department Care Team (Late st Contact Info) Description 05/26/2023 ePub Directt Message Enc [facility] [id number] [place] [phone] Seda Geiger, [facility] [id number] [place] [address] [place] [id number] Question for physical Social History Tobacco Use Types Packs/Day Years [...] Master's degree (e.g., MA, MS, Darnell, MEd, HOSPITAL MEDICAL BILLER, YOUNG) 04/27/2019 Sex and Gender Information Value Date Recorded Sex Assigned at Male 04/27/2019 7:38 AM PROTOTYPE FABRICATOR Legal Sex Male 12:08 PM CDT Gender Identity Male 04/27/2019 7:38 AM PROTOTYPE FABRICATOR Sexual Orientation Straight 04/27/2019 7: 38 AM PROTOTYPE FABRICATOR documented as of this encounter Plan of Treatment Not on file documented as of this encounter Visit Diagnoses Not on filedocumented in this encounter Additional Health Concerns Assessment Noted Time PHQ-9 Depression Total Score: 5 12/26/19 22 9:22 AM CDT documented as of this encounter Care Teams Workers' Compensation Claims Examiner Relationship Specialty Start Date End Date Seda Geiger, [facility]- [address], [address] [place] [address] PCP - General Nurse Practitioner Family 02/22/23 12/04/24 [place] [address] [place] [address] PCP - General INTERNAL MEDICINE 12/05/24 Santino Nolen MD [facility]. [address] [address] [place] Grinder Set Up Operator External CARDIOVASCULAR DISEASE 04/13/19 documented as of this encounter
--- NOTE | 2024-12-28 11:46 | ED.URI ---
HPI - URI/Sore Throat General Chief Complaint: Upper Respiratory Infection Stated Complaint: cough/congestion/ear pain Time Seen by Provider: 12/28/24 11:44 Source: patient Mode of arrival: ambulatory Limitations: no limitations History of Present Illness HPI Narrative: Artur is a 39-year-old male patient presenting to the clinic today with complaints of cough, sinus congestion, sinus headache, and ear pain for over 1 week. He reports he is coughing up and blowing out yellowish brown discharge. Denies any chest pain or shortness of breath. No known fevers, chills, body aches. History of penicillin allergy-hives. States he is not allergic to tetracycline as it is listed Related Data Home Medications ?Medication ?Instructions ?Recorded ?Confirmed ?Last Taken ?Type citalopram 20 mg tablet 20 mg PO DAILY 04/29/21 04/29/21 Unknown History Allergies Allergy/AdvReac Type Severity Reaction Status Date / Time Penicillins Allergy Unknown HIVES Verified 12/28/24 11:56 tetracycline Allergy Unknown HIVES Verified 12/28/24 11:56 Review of Systems Review of Systems: Pertinent positives per HPI. Patient denies any fever, chills, rash, headache, visual changes, dizziness, cough, shortness of breath, chest pain, palpitations, nausea, vomiting, diarrhea, constipation, abdominal pain, or any urinary issues. PMFSH Comments At the time of my signature, I reviewed and agree with the nursing past medical, surgical, social, and family history. There is no relevant family history pertinent to the patient complaint. Exam Narrative: General: Well-developed, well nourished, in no apparent distress Head: Normocephalic, atraumatic Eyes: Pupils equally round and reactive to light bilaterally, EOM intact, sclera and conjunctive clear, no discharge, lids normal Ears: TMs intact and clear, ear canals clear, no drainage, grossly hearing normal. Nose: Nares patent, yellow nasal discharge, moderate to severe inflammation, frontal sinus tenderness. Mouth: Oral pharynx without lesions or masses, good dentition, MMM. Postnasal drip Neck: Supple, trachea midline, no enlargement of anterior or posterior cervical nodes, no thyroid masses or goiter palpable. Cardio: Regular rate and rhythm, s1 and s2 normal, no murmur appreciated. Resp: Clear to auscultation bilaterally, no rhonchi, rales, wheezing or rubs Course Course Emergency Course: Portions of this record may have been created with voice recognition software. Level of Care: Express Care Visit Vital Signs Vital signs: Vital signs reviewed MDM - URI/Sore Throat MDM Narrative Medical decision making narrative: At the time of visit patient is resting comfortably on the exam table. Patient appears to be nontoxic. C/O cough, sinus congestion, sinus headache, and ear pain for over 1 week. He reports he is coughing up and blowing out yellowish brown discharge. No fevers, chills, body aches. Frontal sinus discomfort. Plan: I suspect patient has acute bacterial rhinosinusitis. Prescription for prednisone and doxycycline was sent to the pharmacy. Supportive measures were discussed with the patient and they voiced understanding discharge instructions and agrees to treatment plan. Return precautions reviewed Differential Diagnosis Differential diagnosis: Likely upper respiratory infection, otitis media, sinusitis, viral infection, bronchitis, influenza, pharyngitis and other (COVID) Discharge Plan Discharge Clinical Impression: Acute bacterial rhinosinusitis Patient Disposition: Home Condition: Stable Instructions: Antibiotic Form, Rhinosinusitis (ED) Additional Instructions: Take prescription medications only as prescribed-doxycycline and prednisone Increase fluids and stay well hydrated Tylenol/motrin for pain/fever Flonase and OTC antihistamines as directed Vicks vapor rub to open sinuses Sinus rinses for congestion Cepacol spray, cough drops, throat lozenges, warm tea with honey/lemon, gargle salt water to soothe throat BRAT diet for diarrhea Clear liquids x 24 hours then advance as tolerated for nausea/vomiting Go to the ED if you develop a worsening in your condition- high fever not controlled by Tylenol or Motrin, dehydration, weakness, lethargy, shortness of breath, or chest pain. Follow up with your PCP in 3-5 days if symptoms persist. Patient Language: Turkish Prescriptions: New prednisone 20 mg tablet 40 mg PO DAILY 5 Days Qty: 10 0RF doxycycline monohydrate 100 mg capsule 100 mg PO BID 7 Days Qty: 14 0RF No Action citalopram 20 mg tablet 20 mg PO DAILY Follow-up/Referrals: UNKNOWN,DOCTOR [Primary Care Provider] - Time of Disposition: 11:58 Quality NIHSS Nursing Documentation ED NIHSS nursing documentation: reviewed/agree
[2024-12-28 11:50] VITALS: O2SAT 99
[2024-12-28 11:51] VITALS: BP 146/95; PULSE 86; RESP 18; TEMP 36.6; O2SAT 98
== END 2024-12-28 12:02 | disposition home or self-care (01) ==
PROVIDERS: Emergency Provider Nurse Practitioner Family
DX: J01.90 Acute sinusitis, unspecified (principal); F41.9 Anxiety disorder, unspecified
CPT/HCPCS: 99213; G0463